=== PATIENT | female | born 1990 | race Caucasian/White ===

== ENCOUNTER 2022-11-07 10:26 | Emergency (ER) | payer OTHER ==
[2022-11-07] MEDS ORDERED: Ketorolac Tromethamine 60 MG/2 ML VIAL ONE (10:49)
[2022-11-07] MEDS ORDERED: Ondansetron ODT 4 MG TAB ONE (10:49)
[2022-11-07] MEDS ORDERED: Boostrix 0.5 ML (Tdap) VIAL (>/=7 yrs of age) ONE (10:49)
[2022-11-07] MEDS ORDERED: Promethazine 25 MG TAB ONE (11:40)
[2022-11-07] MEDS ORDERED: HYDROcodone/Acetaminophen 5/325 mg Tablet ONE (11:40)
== END 2022-11-07 11:42 ==
LOC: MADERS 10:26
DX: S00.81XA Abrasion of other part of head, initial encounter (principal); S00.01XA Abrasion of scalp, initial encounter; R29.898 Other symptoms and signs involving the musculoskeletal system; Z23 Encounter for immunization; Y04.0XXA Assault by unarmed brawl or fight, initial encounter
CPT/HCPCS: 70450; 70486; 72125; 90471; 90715; 96372; J1885; Q0162; Q0169

== ENCOUNTER 2025-06-25 19:11 | Emergency (ER) | payer OTHER, SELFPAY ==
[2025-06-25 19:39] LABS: Glucose, Urine (Dipstick) Negative (Negative); Leukocyte Negative (Negative); Protein, Urine (Dipstick) 30 mg/dL (Neg-Trace); Specific Gravity, Urine Greater/Equal 1.030 (1.005-1.030)
[2025-06-25 19:41] LABS: Pregnancy Test - Urine (BHCG) Negative (Negative); Pregu Control Background? CLEAR/WHITE (CLR/WHITE); Pregu Control Bar Appear? YES (CONTROL BAR)
[2025-06-25 19:43] LABS: Bacteria/HPF Rare-Few HPF (None Seen); CAUTI Indications for Culture Dysuria,urgency,freq; RBC/HPF 0-3 HPF (0-3); Urine Culture Reflex No No
[2025-06-25] MEDS ORDERED: Azithromycin 250 MG TAB ONE (21:19)
[2025-06-25] MEDS ORDERED: cefTRIAXone (ROCEPHIN) 500 MG VIAL ONE (21:20)
[2025-06-26 21:27] LABS: Chlam.trachomatis by PCR,Urine Not Detected (NotDetected); GC N.gonorrhoeae PCR,UrineVOID Not Detected (NotDetected)
== END 2025-06-25 21:35 | disposition home or self-care (01) ==
LOC: MADERS 19:11
DX: R30.0 Dysuria (principal); A64 Unspecified sexually transmitted disease
CPT/HCPCS: 81001; 81025; 87480; 87491; 87510; 87591; 87660; 96372; 99283; J0696